=== PATIENT | male | born 1985 | race African-American/Black ===

== ENCOUNTER 2018-12-19 17:16 | Emergency (ER) | payer SELFPAY ==
[~2018-12-19] VITALS: Ht 177.8 cm; Wt 95.5 kg
[2018-12-19 17:29] VITALS: BP 159/101; PULSE 78; TEMP 98.4
[2018-12-19 17:39] LABS: COLLECTION METHOD CLEAN CATCH
[2018-12-19 17:45] LABS: MUCOUS Present /lpf; PH 6 (5-8); SQUAMOUS EPITHELIAL 0-2 /hpf; URINE APPEARANCE Clear; URINE BACTERIA None Seen /hpf; URINE BILIRUBIN Negative (NEGATIVE); URINE BLOOD Negative (NEGATIVE); URINE COLOR Yellow; URINE GLUCOSE Negative (NEGATIVE); URINE KETONE Negative (NEGATIVE); URINE LEUKOCYTE ESTERASE Trace (NEGATIVE); URINE NITRATE Negative (NEGATIVE); URINE PROTEIN(semi-quant) Negative (NEGATIVE); URINE UROBILINOGEN Negative (NEGATIVE)
== END 2018-12-19 18:28 | disposition home or self-care (01) ==
LOC: COL.ER 17:16
PROVIDERS: Physician Assistant
DX: R36.9 Urethral discharge, unspecified (principal); F12.90 Cannabis use, unspecified, uncomplicated; Z20.2 Contact with and (suspected) exposure to infections with a predominantly sexual mode of transmission
CPT/HCPCS: J0696